=== PATIENT | male | born 1940 | race Caucasian/White ===

== ENCOUNTER 2020-09-05 15:23 | Emergency (ER) | payer MEDICARE ==
[~2020-09-05] VITALS: Ht 177.8 cm; Wt 92.9 kg
[2020-09-05 15:40] VITALS: BP 135/76
[2020-09-05 16:31] LABS: BASOPHILS % (AUTO) 1 % (0-1); EOSINOPHILS % (AUTO) 4 % (1-7); LYMPHOCYTES % (AUTO) 32 % (22-44); MEAN CORPUSCULAR HEMOGLOBIN 31.1 pg (27.5-34.5); MEAN PLATELET VOLUME 8.5 fL (7.4-10.4); MONOCYTES % (AUTO) 10 % (2-9); NEUTROPHILS % (AUTO) 54 % (42-75); PLATELET COUNT 221 x10^3/uL (130-400); RED CELL DISTRIBUTION WIDTH 13.2 % (9.4-14.8)
[2020-09-05 16:33] LABS: ANION GAP 4 mmol/L (5-15); CHLORIDE 110 mmol/L (98-107); MD NO
[2020-09-05 16:57] LABS: MICROSCOPIC INDICATED
== END 2020-09-05 18:06 | disposition home or self-care (01) ==
LOC: ED 16:23
DX: R31.0 Gross hematuria (principal); N39.0 Urinary tract infection, site not specified
CPT/HCPCS: 36415; 80048; 81001; 85025; 87077; 87086; 87186; 99283; 99284